=== PATIENT | female | born 1955 | race Caucasian/White ===

== ENCOUNTER 2025-01-26 09:37 | Outpatient (AMB) | payer MEDICARE, OTHER, SELFPAY ==
--- NOTE | 2025-01-26 10:05 | MHC.PC.OV ---
Vital Signs 01/26/25 10:11 Weight 132 lb 4 oz BP 108/66 Blood Pressure Location Rt brachial Position Sitting Respiration 14 Pulse 68 Pulse Source Pulse Oximeter Temp 98.2 F Temp Source Oral Pulse Oximetry (%) 96 Oxygen Delivery Method Room Air Intake Visit Reasons: SECURITY INTERN reg visit Intake Note: New patient visit. Clinical Account Manager Required: No Allergies No Known Allergies Allergy (Verified 01/26/25 10:07) Tobacco use date assessed: 01/26/25 Fall risk assessment: No Falls in past year Last assessed Fall Risk: 01/26/25 Dental Screening Dental Screen Date: 01/26/25 Did you have a dental visit in the last 12 months?: Yes Did you have a dental problem in the last 6 months where you did not have access to dental care?: No Was dental information given to patient?: Patient has dentist HPI HPI Comments History of Present Illness Details 69 year old female with a past medical history of type 2 DM, ITP, fatty liver, OA, cataract presenting to [facility] care. Transfer Dr Choudhary Type 2 DM-on ozempic. Lost 30 pounds. Got cataracts done Dr Trimble History of right partial knee replacement-[facility] [place]. Mammo 01/19/2025, next week DXA and mammo Dr Mcclelland 2021 ROS CONSTITUTIONAL: Denies weight loss, fever and chills. HEENT: Denies changes in vision and hearing. RESPIRATORY: Denies SOB and cough. CV: Denies palpitations and CP GI: Denies abdominal pain, nausea, vomiting and diarrhea. : Denies dysuria and urinary frequency. MSK: Denies new myalgia and joint pain. SKIN: Denies rash and pruritus. NEUROLOGICAL: Denies headache PSYCHIATRIC: Denies recent changes in mood. PHYSICAL EXAM: GENERAL: Alert and oriented x 3. NAD EYES: EOMI. Anicteric. HENT: Moist mucous membranes. No scleral icterus. No cervical lymphadenopathy. LUNGS: Clear to auscultation bilaterally. CARDIOVASCULAR: Regular rate and rhythm. No murmur. No JVD. ABDOMEN: Soft, non-tender +bs EXTREMITIES: No edema. Non-tender. SKIN: No rashes or lesions. Warm. NEUROLOGIC: No focal neurological deficits. CN II-XII grossly intact PSYCHIATRIC: Cooperative. Appropriate mood and affect [facility] Medical History Cataracts, bilateral H/O mammogram Surgical History Hx of tonsillectomy History of knee replacement Social History Housing: House Patient Tobacco Use Status: Former Tobacco user Cigarette Packs Per Day: 2 Years Smoked: 3 e-Cigarette/Vaping Use: Never Used service: No Current occupational status: retired Cognitive needs: No Hearing needs: Yes Vision needs: No Questionnaire PHQ-9 Over the last 2 weeks, how often have you been bothered by any of the following problems? 1. Little interest or pleasure in doing things: not at all 2. Feeling down, depressed, or hopeless: not at all 3. Trouble falling or staying asleep, or sleeping too much: not at all 4. Feeling tired or having little energy: not at all 5. Poor appetite or overeating: not at all 6. Feeling bad about yourself - or that you are a failure or have let yourself or your family down: not at all 7. Trouble concentrating on things, such as reading the newspaper or watching television: not at all 8. Moving or speaking so slowly that other people could have noticed. Or the opposite - being so fidgety or restless that you have been moving around a lot more than usual: not at all 9. Thoughts that you would be better off or of hurting yourself in some way: not at all Total score: 0 Depression Screening Interpretation: Negative Depression Screening Done: Yes [id number] - PHQ-9 Billing: Yes Source: Developed by Drs. Nithin Barriga, Monisha Cuevas, Barrera Anne and colleagues, with an educational karo from [employer]. Thrive Questionnaire I am a: Patient What is your living situation today?: I have a steady place to live Within the past 12 months, did the food you bought not last and you didn't have the money to get more?: Never true Within the past 12 months, did you worry whether your food would run out before you got money to buy more?: Never true Do you have trouble paying for medicines?: No Do you have trouble getting transportation to medical appointments?: No Do you have trouble paying your heating and electricity bill?: No Do you have trouble taking care of your child, family member or friend?: No Do you have trouble with day-to-day activities such as bathing, preparing meals, shopping, managing finances, etc.?: No Are you currently unemployed and looking for a job?: No Are you interested in more education?: No Please select the resources that you would like help with: None Currently or been in a relationship where the following occur: No concerns reported THRIVE Score: 0 AUDIT C Alcohol Use Questionnaire (AUDIT-C) 1. How often do you have a drink containing alcohol?: 2-3 times a week 2. How many drinks containing alcohol do you have on a typical day when you are drinking?: 1 or 2 3. How often do you have six or more drinks on one occasion?: Never Total Score: 3 SHARLENE-7 AMB Questionnaire SHARLENE-7 Feeling nervous, anxious, or on edge: 0 = Not at all Not being able to stop or control worryin = Not at all Worrying too much about different things: 0 = Not at all Trouble relaxin = Not at all Being so restless that it is hard to sit still: 0 = Not at all Becoming easily annoyed or irritable: 0 = Not at all Feeling afraid as if something awful might happen: 0 = Not at all Total SHARLENE-7 score (0-4 normal; 5-9 mild; 10-14 moderate; 15-21 severe): 0 Source: Developed by Drs. Nithin Barriga, Monisha Cuevas, Barrera Anne and colleagues, with an educational karo from [employer]. Physical exam (Primary Care) Vital Signs: Last Vital Signs Temp 98.2 F 01/26/25 10:11 Pulse 68 01/26/25 10:11 Resp 14 01/26/25 10:11 BP 108/66 01/26/25 10:11 Pulse Ox 96 01/26/25 10:11 Oxygen Delivery Method Room Air 01/26/25 10:11 Tobacco/Smoking Status: Tobacco use Status Tobacco use date assessed 01/26/25 01/26/25 10:12 Patient Tobacco Use Status Former Tobacco user 01/26/25 10:12 e-Cigarette/Vaping Use Never Used 01/26/25 10:12 PHQ-9: PHQ-9 Score PHQ-9: Total score 0 01/26/25 10:14 Depression Screening Interpretation: Negative Currently or been in a relationship where the following occur: No concerns reported Coding Level of Care Code New Pt Level 4 (06539) Diagnoses Chronic ITP (idiopathic thrombocytopenia) D69.3 Hyperlipidemia, unspecified hyperlipidemia type E78.5 Hyperlipidemia type: unspecified Fatty liver K76.0 Additional Codes PHQ-9 - 76833 - PHQ-9 Billing: Yes ([id number]) Assessment & Plan Assessment & Plan (1) Chronic ITP (idiopathic thrombocytopenia): Code(s): D69.3 - Immune thrombocytopenic purpura Category: Medical (2) Hyperlipidemia: Code(s): E78.5 - Hyperlipidemia, unspecified Category: Medical Qualifiers: Hyperlipidemia type: unspecified Qualified Code(s): E78.5 - Hyperlipidemia, unspecified (3) Fatty liver: Code(s): K76.0 - Fatty (change of) liver, not elsewhere classified Category: Medical Plan 69 year old to establish care past medical, surgical, social reviewed Preventive measures up to date DM controlled on ozempic. Labs ordered Orders: Orders Complete Blood Count Auto Diff Today D69.3 - Immune thrombocytopenic purpura, E78.5 - Hyperlipidemia, unspecified, H02.9 - Unspecified disorder of eyelid, K76.0 - Fatty (change of) liver, not elsewhere classified, Z13.228 - Encounter for screening for other metabolic disorders Lipid Panel Today D69.3 - Immune thrombocytopenic purpura, E78.5 - Hyperlipidemia, unspecified, H02.9 - Unspecified disorder of eyelid, K76.0 - Fatty (change of) liver, not elsewhere classified, Z13.228 - Encounter for screening for other metabolic disorders TSH reflex Free T4 Today D69.3 - Immune thrombocytopenic purpura, E78.5 - Hyperlipidemia, unspecified, H02.9 - Unspecified disorder of eyelid, K76.0 - Fatty (change of) liver, not elsewhere classified, Z13.228 - Encounter for screening for other metabolic disorders Microalbumin, Random (w Creat) Today D69.3 - Immune thrombocytopenic purpura, E78.5 - Hyperlipidemia, unspecified, H02.9 - Unspecified disorder of eyelid, K76.0 - Fatty (change of) liver, not elsewhere classified, Z13.228 - Encounter for screening for other metabolic disorders Comprehensive Met. Panel Today D69.3 - Immune thrombocytopenic purpura, E78.5 - Hyperlipidemia, unspecified, H02.9 - Unspecified disorder of eyelid, K76.0 - Fatty (change of) liver, not elsewhere classified, Z13.228 - Encounter for screening for other metabolic disorders Hemoglobin A1c Today D69.3 - Immune thrombocytopenic purpura, E78.5 - Hyperlipidemia, unspecified, H02.9 - Unspecified disorder of eyelid, K76.0 - Fatty (change of) liver, not elsewhere classified, Z13.228 - Encounter for screening for other metabolic disorders Referrals Ophthalmology Referral Z13.228 - Encounter for screening for other metabolic disorders
[2025-01-26 10:11] VITALS: BP 108/66; PULSE 68; RESP 14; TEMP 36.8; O2SAT 96
== END 2025-01-26 10:30 | disposition home or self-care (01) ==
LOC: HO.HMCFM 09:38
PROVIDERS: PCP Internal Medicine; Visit Provider Internal Medicine
DX: D69.3 Immune thrombocytopenic purpura (principal); E78.5 Hyperlipidemia, unspecified; K76.0 Fatty (change of) liver, not elsewhere classified

== ENCOUNTER 2025-01-26 09:37 | Outpatient (REF) | payer MEDICARE, SELFPAY ==
[2025-01-26 15:14] LABS: MANUAL DIFF FLAG NO
[2025-01-26 15:22] LABS: Hematocrit 42.6 % (37.0-47.0); Hemoglobin 14.0 g/dl (12.0-16.0); Imm Gran Abs Auto 0.00 X10*3/uL (0.00-0.03); Imm Gran Pct Auto 0.0 % (0.0-0.4); Lymphocytes Absolute Auto 1.7 X10*3/uL (1.2-4.9); Mean Corpuscular HGB Conc 32.9 g/dl (31.0-35.0); Mean Corpuscular Hemoglobin 30.4 pg (27.0-33.0); Mean Corpuscular Volume 92.6 fL (80.0-98.0); NRBC Abs Auto 0.000 X10*3/uL (0.0-0.012); NRBC Pct Auto 0.0 /100WBC (0.0-0.2); Platelet Count 161 X10*3/uL (160-400); Red Blood Count 4.60 X10*6/uL (4.20-5.50); White Blood Count 4.7 X10*3/uL (4.8-10.8)
[2025-01-26 15:41] LABS: Alanine Aminotransferase 14 U/L (0-31); Albumin Level 4.1 g/dL (3.5-5.0); Alkaline Phosphatase 60 U/L (39-117); Anion Gap 10 (12-20); Aspartate Amino Transferase 31 U/L (5-31); Blood Urea Nitrogen 7 mg/dL (9-16); Calcium 8.6 mg/dL (8.4-10.2); Carbon Dioxide 26 mmol/L (22-29); Chloride 107 mmol/L (96-108); Cholesterol 123 mg/dL (<200); Estimated Glomerular Filt Rate > 60; HDL Cholesterol 53 mg/dL (>40); Potassium 3.7 mmol/L (3.3-5.1); Sodium 139 mmol/L (135-145); Total Protein 6.8 g/dL (6.5-8.0); Triglycerides 47 mg/dL (<150)
[2025-01-26 15:43] LABS: Hemoglobin A1C 98.1932 umol/L
[2025-01-26 16:01] LABS: Microalbum/Creatinine Ratio Ur 4.1 ug/mg cr (<30)
== END 2025-01-26 09:38 | disposition home or self-care (01) ==
LOC: HO.WFDLDS 09:37
PROVIDERS: PCP Internal Medicine; Visit Provider Internal Medicine
DX: D69.3 Immune thrombocytopenic purpura (principal); Z13.228 Encounter for screening for other metabolic disorders; E78.5 Hyperlipidemia, unspecified; K76.0 Fatty (change of) liver, not elsewhere classified; H02.9 Unspecified disorder of eyelid; E11.9 Type 2 diabetes mellitus without complications; Z13.31 Encounter for screening for depression
CPT/HCPCS: 36415; 80053; 80061; 82043; 82570; 83036; 84443; 85025; 96127; 99202